=== PATIENT | female | born 1990 | race Caucasian/White ===

== ENCOUNTER 2018-12-24 18:31 | Emergency (ER) | payer SELFPAY ==
[~2018-12-24] VITALS: Ht 149.9 cm; Wt 65.3 kg
[2018-12-24 18:36] VITALS: Ht 149.9 cm; Wt 65.3 kg
[2018-12-24 20:59] VITALS: BP 131/78
== END 2018-12-24 20:59 | disposition home or self-care (01) ==
LOC: ED 18:31
DX: J40 Bronchitis, not specified as acute or chronic (principal); M79.10 Myalgia, unspecified site; Z88.5 Allergy status to narcotic agent; Z88.8 Allergy status to other drugs, medicaments and biological substances
CPT/HCPCS: J1885

== ENCOUNTER 2019-01-01 19:37 | Emergency (ER) | payer SELFPAY ==
[~2019-01-01] VITALS: Ht 149.9 cm; Wt 65.3 kg
[2019-01-01 19:58] VITALS: Ht 149.9 cm; Wt 65.3 kg
[2019-01-01 21:54] VITALS: BP 107/69
== END 2019-01-01 21:54 | disposition home or self-care (01) ==
LOC: ED 19:37
DX: J40 Bronchitis, not specified as acute or chronic (principal); Z88.5 Allergy status to narcotic agent; Z88.8 Allergy status to other drugs, medicaments and biological substances
CPT/HCPCS: 87804; J1885; Q0092

== ENCOUNTER 2020-08-14 22:02 | Emergency (ER) | payer OTHER ==
[~2020-08-14] VITALS: Ht 149.9 cm; Wt 67.1 kg
[2020-08-14 22:27] VITALS: Ht 149.9 cm; Wt 67.1 kg
[2020-08-15 04:15] VITALS: BP 114/79
== END 2020-08-15 04:14 | disposition home or self-care (01) ==
LOC: ED 22:02
DX: N30.90 Cystitis, unspecified without hematuria (principal); Z88.5 Allergy status to narcotic agent